=== PATIENT | male | born 1935 | race Caucasian/White ===

== ENCOUNTER 2022-09-05 20:02 | Outpatient (CLI) | payer MEDICARE | END 2022-09-05 23:59 | disposition critical access hospital (66) | LOC: EDBD → EMS 20:02 | DX: Z04.1 Encounter for examination and observation following transport accident (principal); R41.0 Disorientation, unspecified | CPT/HCPCS: A0425; A0429 ==

== ENCOUNTER 2022-09-05 20:10 | Emergency (ER) | payer MEDICARE ==
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
[2022-09-05 22:26] VITALS: BP 136/72
== END 2022-09-05 22:26 | disposition home or self-care (01) ==
LOC: EDBD → ED 20:10
DX: F03.90 Unspecified dementia, unspecified severity, without behavioral disturbance, psychotic disturbance, mood disturbance, and anxiety (principal)
CPT/HCPCS: 99283